=== PATIENT | male | born 1975 | race Two or more races ===

== ENCOUNTER 2020-03-29 20:39 | Emergency (ER) | payer SELFPAY ==
[~2020-03-29] VITALS: Ht 177.8 cm; Wt 99.8 kg
--- NOTE | 2020-03-29 20:50 | NUR ---
Patient walked into ER c/o N/V, weakness and dizziness that started 4hrs [employer]. Patient states had 20 episode of N/V. AOX4.
--- NOTE | 2020-03-29 20:52 | NUR ---
Dr. Cunha at bedside for MSE.
[2020-03-29] MEDS ORDERED: ONDANSETRON 4 MG/2 ML VIAL IV ONE (21:00)
[2020-03-29] MEDS ORDERED: IV NORMAL SALINE 1000 ML BAG IV ONE ×2 (21:00→21:30)
[2020-03-29] MEDS ORDERED: ONDANSETRON 4 MG/2 ML VIAL ONE (21:03)
[2020-03-29 21:06] LABS: BASOPHILS # (AUTO) 0.1 K/uL (0.0-8.0); BASOPHILS % (AUTO) 0.3 % (0.0-2.0); EOSINOPHILS # (AUTO) 0.1 K/uL (0.0-0.7); EOSINOPHILS % (AUTO) 0.7 % (0.0-7.0); HEMATOCRIT 45.1 % (36.7-47.1); HEMOGLOBIN 15.2 g/dL (12.5-16.3); LYMPHOCYTES # (AUTO) 1.1 K/uL (20.0-40.0); LYMPHOCYTES % (AUTO) 6.1 % (20.5-51.5); MEAN CORPUSCULAR HGB CONC 34 g/dL (32.5-36.3); MEAN CORPUSCULAR VOLUME 89.1 fL (73.0-96.2); MONOCYTES # (AUTO) 0.9 K/uL (2.0-10.0); MONOCYTES % (AUTO) 5.2 % (0.0-11.0); NEUTROPHILS # (AUTO) 15.5 K/uL (1.8-8.9); NEUTROPHILS % (AUTO) 87.7 % (38.5-71.5); PLATELET COUNT (AUTO) 365 K/uL (152-348); RED BLOOD CELL COUNT(AUTO) 5.06 MIL/uL (4.06-5.63); WHITE BLOOD COUNT (AUTO) 17.7 K/uL (3.6-10.2)
[2020-03-29 21:12] LABS: CREATININE 1.5 mg/dL (0.6-1.3); POTASSIUM 4.7 mmol/L (3.5-5.1)
--- NOTE | 2020-03-29 21:16 | NUR ---
Dr. Cunha at bedside.
[2020-03-29 21:19] LABS: BILIRUBIN,DIRECT 0.1 mg/dL (0.0-0.2); BILIRUBIN,TOTAL 0.5 mg/dL (0.2-1.0); TOTAL PROTEIN, SERUM 7.5 g/dL (6.4-8.2)
[2020-03-29] MEDS ORDERED: ONDA4TAB11 PO (21:31)
--- NOTE | 2020-03-29 23:06 | NUR ---
Patient discharged to home in stable condition. Written and verbal after care instructions given. Patient verbalizes understanding of instructions. Stressed follow up or return to ER for worsening s/s. Pt ambulated out of the ER with steady gait. All belongings with pt.
[2020-03-29 23:11] VITALS: BP 119/66
== END 2020-03-29 23:06 | disposition home or self-care (01) ==
LOC: ER 20:39
DX: R11.2 Nausea with vomiting, unspecified (principal); D72.829 Elevated white blood cell count, unspecified
CPT/HCPCS: 36415; 80048; 80076; 83690; 85025; 96374; 99284; J2405; A4663; J7030